=== PATIENT | female | born 1950 | race Caucasian/White ===

== ENCOUNTER 2021-06-03 10:54 | Outpatient (CLI) | payer BC | END 2021-06-03 10:55 | disposition home or self-care (01) | LOC: CSHCT 10:54 | PROVIDERS: ATTEND Physician Assistant Medical | DX: R10.9 Unspecified abdominal pain (principal); N28.1 Cyst of kidney, acquired; M47.819 Spondylosis without myelopathy or radiculopathy, site unspecified; M41.85 Other forms of scoliosis, thoracolumbar region; M16.11 Unilateral primary osteoarthritis, right hip | CPT/HCPCS: 74177; 82565 ==

== ENCOUNTER 2023-01-15 07:48 | Outpatient (CLI) | payer BC | END 2023-01-15 07:49 | disposition home or self-care (01) | LOC: CSHULT 07:48 | PROVIDERS: ATTEND Physician Assistant Medical | DX: R10.13 Epigastric pain (principal); K21.9 Gastro-esophageal reflux disease without esophagitis | CPT/HCPCS: 76705 ==

== ENCOUNTER 2023-07-12 14:57 | Outpatient (CLI) | payer BC | END 2023-07-12 14:58 | disposition home or self-care (01) | LOC: CSHMAMMO 14:57 | PROVIDERS: ATTEND Internal Medicine | DX: M81.0 Age-related osteoporosis without current pathological fracture (principal); M85.89 Other specified disorders of bone density and structure, multiple sites | CPT/HCPCS: 77080 ==

== ENCOUNTER 2023-12-24 12:29 | Outpatient (CLI) | payer MEDICARE ==
[~2023-12-24 12:29] MED LIST: Magnevist 469MG/ML 20 ML VIAL ONE
== END 2023-12-24 12:30 | disposition home or self-care (01) ==
LOC: CSHMRI 12:29
PROVIDERS: ATTEND Specialist
DX: G44.209 Tension-type headache, unspecified, not intractable (principal); R90.82 White matter disease, unspecified
CPT/HCPCS: 70552; 82565; A9579